=== PATIENT | male | born 2005 | race Hispanic/Latino ===

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

== ENCOUNTER 2024-05-05 07:28 | Emergency (ER) | payer OTHER, SELFPAY ==
[2024-05-05] MEDS ORDERED: Ketorolac Tromethamine 30 MG (1 mL) VIAL ONE (08:07)
== END 2024-05-05 09:12 | disposition home or self-care (01) ==
LOC: ERS 07:28
DX: S60.511A Abrasion of right hand, initial encounter (principal); M25.562 Pain in left knee; M25.512 Pain in left shoulder; M25.532 Pain in left wrist; V49.40XA Driver injured in collision with unspecified motor vehicles in traffic accident, initial encounter; Z55.6 Problems related to health literacy
CPT/HCPCS: J1885